=== PATIENT | male | born 1990 | race Caucasian/White ===

== ENCOUNTER 2020-01-18 16:41 | Emergency (ER) | payer MEDICAID ==
[~2020-01-18] VITALS: Ht 167.6 cm; Wt 97.5 kg
--- NOTE | 2020-01-18 16:49 | NUR ---
ALFREDITO RA 89 From Home "room mate walked into him seizing. Post-ictal on arrival. Agressive and combative BS-85 Gave 5mg Versed IM" to Er bed 10, slow to respond when spoken to, hooked to school lunch monitor and pox, sinus tachy at 125bpm. noted diaphoretic, changed to hosp gown, seizure precautions applied. Dr Gonzalez at bedside
[2020-01-18] MEDS ORDERED: LORAZEPAM INJ 2 MG/ML VIAL ONE (16:57)
[2020-01-18] MEDS ORDERED: LORAZEPAM INJ 2 MG/ML VIAL IVP ONE (17:00)
[2020-01-18] MEDS ORDERED: IV NS 0.9% 1,000 ML BAG IV ONE (17:00)
--- NOTE | 2020-01-18 17:02 | NUR ---
MAINTENANCE INSTRUCTOR AT BEDSIDE
[2020-01-18 17:05] LABS: BASOPHILS # (AUTO) 0.1 /CMM (0.0-0.2); BASOPHILS % (AUTO) 0.5 % (0.0-2.0); EOSINOPHILS % (AUTO) 0.1 % (0.0-6.0); HEMATOCRIT 49 % (39-51); HEMOGLOBIN 16.2 g/dL (13.5-17.5); LYMPHOCYTES # (AUTO) 2.9 /CMM (0.8-4.8); LYMPHOCYTES % (AUTO) 23.9 % (20.0-44.0); MEAN CORPUSCULAR HGB CONC 33 g/dl (31.0-36.0); MEAN CORPUSCULAR VOLUME 94 fL (80-96); MONOCYTES # (AUTO) 0.6 /CMM (0.1-1.30); MONOCYTES % (AUTO) 4.9 % (2.0-12.0); NEUTROPHILS # (AUTO) 8.5 /CMM (1.8-8.9); NEUTROPHILS % (AUTO) 70.6 % (43.0-81.0); PLATELET COUNT (AUTO) 324 /CMM (150-450); RED BLOOD CELL COUNT(AUTO) 5.15 MIL/uL (4.5-6.0)
[2020-01-18 17:15] LABS: CALCIUM, SERUM 9.4 mg/dL (8.5-10.1); CREATININE 1.5 mg/dL (0.6-1.3); POTASSIUM 4.2 mmol/L (3.5-5.1)
[2020-01-18] MEDS ORDERED: LEVETIRACETAM (500MG) 500 MG in IV NS 0.9% 100 ML IV SCH (17:30)
[2020-01-18 17:32] LABS: ALBUMIN 4.4 g/dL (3.4-5.0); BILIRUBIN,DIRECT 0.1 mg/dL (0.0-0.2); BILIRUBIN,TOTAL 0.3 mg/dL (0.2-1.0); TOTAL PROTEIN, SERUM 7.6 g/dL (6.4-8.2)
--- NOTE | 2020-01-18 17:33 | NUR ---
back from ct scan
--- NOTE | 2020-01-18 18:21 | NUR ---
NEWS VIDEO EDITOR AT BEDSIDE
--- NOTE | 2020-01-18 18:35 | NUR ---
PATIENT SIGNED CONSENT FOR PROCEDURE AND ANESTHESIA
[2020-01-18] MEDS ORDERED: PROPOFOL 20 ML IV ONE (18:37)
--- NOTE | 2020-01-18 18:56 | NUR ---
, RT, RN AND TECH AT BEDSIDE FOR PROCEDURE. PATIENT HOOKED TO WAITER/WAITRESS ECONOMY CLASS, VSS.
[2020-01-18] MEDS ORDERED: PROPOFOL 200 MG/20 ML VIAL IV ONE (19:00)
--- NOTE | 2020-01-18 19:11 | NUR ---
PATIENT AWAKE. HOOKED TO MONITOR, VSS. NAD NOTED. AAO x 4. MADE AWARE
--- NOTE | 2020-01-18 19:16 | NUR ---
RT rt called for standby for conscious sedation of closed shoulder reduction. pt saturation on room air 98-100%. rt prepared ambu bag. per md, placed pt on simple mask for procedure. pt maintained 99% saturation throughout procedure. post procedure pt saturation 99%.
--- NOTE | 2020-01-18 19:31 | NUR ---
REPORT GIVEN TO ALANA WOODS FOR CHELI
--- NOTE | 2020-01-18 20:59 | NUR ---
DR. SANTA SPEAKING WITH ORTHO SCIENTIFIC GLASS BLOWER
[2020-01-18] MEDS ORDERED: LORAZEPAM 1 MG TABLET PO ONE (21:30)
[2020-01-18] MEDS ORDERED: LORAZEPAM 1 MG TABLET ONE (21:38)
--- NOTE | 2020-01-18 23:09 | NUR ---
Patient discharged to home in stable condition. Written and verbal after care instructions given. Patient verbalizes understanding of instruction.IV removed. Catheter intact and site benign. Pressure and 4x4 applied to site. No bleeding noted.
[2020-01-18 23:10] VITALS: BP 136/82
== END 2020-01-18 23:10 | disposition home or self-care (01) ==
LOC: ER 16:43
DX: S42.252A Displaced fracture of greater tuberosity of left humerus, initial encounter for closed fracture (principal); S43.085A Other dislocation of left shoulder joint, initial encounter; S00.532A Contusion of oral cavity, initial encounter; G40.909 Epilepsy, unspecified, not intractable, without status epilepticus; F10.10 Alcohol abuse, uncomplicated; E87.2 Acidosis; R41.0 Disorientation, unspecified; E11.9 Type 2 diabetes mellitus without complications; W18.39XA Other fall on same level, initial encounter; Y93.89 Activity, other specified; Y92.89 Other specified places as the place of occurrence of the external cause; Y99.8 Other external cause status; Y90.9 Presence of alcohol in blood, level not specified
CPT/HCPCS: 23650; 36415; 70450; 71045; 73030 ×2; 80048; 80076; 80307; 82962; 85025; 85730; 93005; 96361; 96365; 96375; 99285; J1953; J2060; J2704; J7030 ×3; G0480